=== PATIENT | male | born 1970 | race Caucasian/White ===

== ENCOUNTER 2017-06-11 07:03 | Emergency (ER) | payer OTHER ==
[~2017-06-11] VITALS: Ht 185.4 cm; Wt 77.1 kg
[~2017-06-11 07:03] MED LIST: CEFTRIAXONE2 G2 IM; CYCLOSPORINE M100 MG PO; CYCLOSPORINE25 MG PO; DOXYCYCLINE HY100 MG PO; FOLIC ACID1 MG PO; HYDROCODON-ACE1 EA10 PO; METHOTREXA25 MG/1 M7 SUB-Q; METHOTREXATE2.5 MG INJ; NORCO 5-325 TA1 EACH PO; OMEPRAZOLE20 MG PO; ONDANSETRON HCL4 MG PO; PREDNISONE5 MG PO
[2017-06-11] MEDS ORDERED: CIPRO500 MG PO (08:43)
== END 2017-06-11 08:50 | disposition home or self-care (01) ==
LOC: ED 07:03
DX: N39.0 Urinary tract infection, site not specified (principal); Z90.49 Acquired absence of other specified parts of digestive tract
CPT/HCPCS: 81001; 87077; 87088; 87186; 99283